=== PATIENT | female | born 1955 | race Two or more races ===

== ENCOUNTER 2019-11-22 21:00 | Inpatient (IN) | payer MEDICARE, OTHER ==
[~2019-11-22] VITALS: Ht 165.1 cm; Wt 59.9 kg
--- NOTE | 2019-11-22 21:20 | NUR ---
PATIENT CAME TO ER BED 3 BIB PARAMEDICS FOR MEDICAL CLEARANCE. PATIENT IS ON A 5150 HOLD SINCE 1600 OF 11-22-2019 FOR DANGER TO SELF. PATIENT DENIES SUICIDAL IDEATION, HOMICIDAL INTENT. PATIENT STATES, "I AM BLEEDING ON THE INSIDE". AAOX2. NO SOB. BREATHING EVENLY AND UNLABORED ON ROOM AIR.
--- NOTE | 2019-11-22 21:26 | NUR ---
URINE COLLECTED AND SENT TO THE LAB.
[2019-11-22 21:38] LABS: BASOPHILS # (AUTO) 0.1 /CMM (0.0-0.2); BASOPHILS % (AUTO) 0.8 % (0.0-2.0); EOSINOPHILS % (AUTO) 1.1 % (0.0-6.0); HEMATOCRIT 46 % (33-45); HEMOGLOBIN 14.8 g/dL (11.5-14.8); LYMPHOCYTES # (AUTO) 2.4 /CMM (0.8-4.8); LYMPHOCYTES % (AUTO) 20.8 % (20.0-44.0); MEAN CORPUSCULAR HGB CONC 32 g/dl (31.0-36.0); MEAN CORPUSCULAR VOLUME 93 fL (82-100); MONOCYTES # (AUTO) 0.9 /CMM (0.1-1.30); MONOCYTES % (AUTO) 8.3 % (2.0-12.0); NEUTROPHILS # (AUTO) 7.9 /CMM (1.8-8.9); PLATELET COUNT (AUTO) 361 /CMM (150-450); RED BLOOD CELL COUNT(AUTO) 4.92 MIL/uL (4.0-5.2); WHITE BLOOD COUNT (AUTO) 11.4 K/uL (4.3-11.0)
[2019-11-22 21:41] LABS: APPEARANCE,URINE Clear (CLEAR); BILIRUBIN,URINE Negative (NEGATIVE); BLOOD, URINE Negative Ery/uL (NEGATIVE); COLOR,URINE Yellow (YELLOW); KETONES,URINE Negative (NEGATIVE); LEUKOCYTE ESTERASE ,URINE Trace (NEGATIVE); NITRITE, URINE Negative (NEGATIVE); PROTEIN,URINE Negative (NEGATIVE); UGLUCOSE Negative (NEGATIVE)
[2019-11-22 21:47] LABS: CALCIUM, SERUM 9.5 mg/dL (8.5-10.1); CARBON DIOXIDE 27 mmol/L (21-32); CHLORIDE 104 mmol/L (98-107); CREATININE 0.8 mg/dL (0.6-1.3); GLUCOSE 86 mg/dL (74-106); POTASSIUM 3.6 mmol/L (3.5-5.1); SODIUM SERUM 140 mmol/L (136-145); UREA NITROGEN, BLOOD 13 mg/dL (7-18)
[2019-11-22 21:50] LABS: RBC,URINE 0-2 /HPF (0-2)
[2019-11-22 21:51] LABS: BACTERIA,URINE Many /HPF (None Seen); SQUAMOUS EPITHELIAL CELL,UR Many /HPF (None Seen)
[2019-11-22 22:04] LABS: ALANINE AMINOTRANSFERASE 18 U/L (12-78); ALBUMIN 3.7 g/dL (3.4-5.0); ALCOHOL, BLOOD < 3 mg/dL (0-0); ALKALINE PHOSPHATASE 105 U/L (46-116); ASPARTATE AMINOTRANSFERASE 11 U/L (15-37); BILIRUBIN,DIRECT 0.1 mg/dL (0.0-0.2); BILIRUBIN,TOTAL 0.3 mg/dL (0.2-1.0); SALICYLATE 4.6 mg/dL (2.8-20.0); TOTAL PROTEIN, SERUM 7.4 g/dL (6.4-8.2)
[2019-11-22 22:05] LABS: ACETAMINOPHEN 0 ug/ml (10-30)
[2019-11-22] MEDS ORDERED: LITH300T PO (22:17)
[2019-11-22] MEDS ORDERED: CEPHALEXIN MONOHYDRATE 500 MG CAPSULE PO ONE ×2 (22:19→22:30)
--- NOTE | 2019-11-22 22:23 | NUR ---
BED ASSIGNMENT BPS 211-A
--- NOTE | 2019-11-22 22:28 | NUR ---
REPORT GIVEN TO KAYLEE LUKE FOR CLAUDIA.
[2019-11-22] MEDS ORDERED: BLOOD SUGAR DIAGNOSTIC 1 EACH STRIP IN ONE (23:00)
[2019-11-22] MEDS ORDERED: TEMAZEPAM 7.5 MG CAPSULE PO PRN (23:00)
[2019-11-22] MEDS ORDERED: MAGNESIUM HYDROXIDE 30 ML UDC PO PRN (23:00)
[2019-11-22] MEDS ORDERED: MAG HYDROX/AL HYDROX/SIMETH 30 ML UDC PO PRN (23:00)
[2019-11-22] MEDS ORDERED: LORAZEPAM 0.5 MG TABLET PO PRN (23:00)
--- NOTE | 2019-11-22 23:00 | NUR ---
GPS SUPERVISOR NURSE NOTES: ADMITTED 64 Y/O MALE. PT ADMITTED FROM [facility] ER TO GPS UNIT ON A 5150. PER HOLD PTS BROTHER CALLED FOR A REQUEST CRISIS EVALUATION DUE TO PT WANDERING AROUND THE STREET WITH NO REGARDS OF HER SAFETY. ON THE HOLD MA STATED THAT HER SON IS . SON IS ACTUALLY ALIVE AND WELL. PT EXHIBITS DELUSION STATED THAT SHE HAS BILLIONS OF DOLLARS IN THE BANK. PT IS PARANOID SAYING THAT HER BROTHERS ARE STEALING HER MONEY. UPON FACE TO FACE PT IS ANXIOUS, CONFUSED, FORGETFUL, PARANOID, NEEDY, COOPERATIVE AT TIMES, DISORGANIZED AND DISHEVELED. PT STATED MULTIPLE TIMES THAT SHE HAS A LOT OF MANY AND THAT HER BROTHER IS NOT SUPPORTIVE. PT CLAIMS SHE IS ALLERGIC TO EGGS, WHEAT, AND RISPERDAL. ALLERGIES INPUTTED ON PTS PROFILE. PT MARLENI SI AND HI AT THIS TIME. PT REFUSED TO SIGN CONSENT PAPER WORK. ENVIRONMENTAL SAFETY CHECK DONE Q15MIN. ENCOURAGE PT TO VERBALIZE CONCERN ANS FEELING TO STAFF. ORIENTED TO THE UNIT. BELONGINGS AND CONTRABAND CHECKED AND DONE. NURSING ASSESSMENT DONE. SKIN ASSESSMENT IS CHECKED WITH LOWER BACK REDNESS, UPPER BACK SCRATCH, AND BILATERAL LONG TOENAILS. PICTURE TAKEN OF PATIENTS FACE FOR IDENTIFICATION PUT IN PTS CHART. PT IS A SMOKER BUT REFUSED NICOTINE PATCH ORDER. EXPLAIN RISKS AND BENEFITS. PT STILL REFUSED X3. PTS RIGHTS DISCUSS BY BUILDING PERFORMANCE CONSULTANT. PROVIDED THE PT WITH HANDBOOK AND MEDICATION GUIDE. VITALS TAKEN WNL. INITIAL BLOOD SUGAR CHECKED. NO S/S OF RESPIRATORY DISTRESS NOTES. BREATHING EVEN AND UNLABORED. NO S/S OF SOB. CALL GARCIA WITHIN REACH. BED LOCKED AND LOWEST POSITION. KEPT CLEAN AND DRY. CONTINUE TO MONITOR.
[2019-11-22] MEDS ORDERED: QUETIAPINE (23:29)
[2019-11-22] MEDS ORDERED: LITH300C2 (23:29)
[2019-11-22] MEDS ORDERED: OLANZAPINE (23:29)
[2019-11-22] MEDS ORDERED: LITH150C (23:29)
[2019-11-22 23:39] VITALS: BP 102/57
[2019-11-23] MEDS ORDERED: OLAN10TA3 PO (07:21)
[2019-11-23] MEDS ORDERED: QUET25TA PO (07:21)
[2019-11-23 08:00] VITALS: BP 118/67
[2019-11-23 08:35] LABS: CREATININE 0.8 mg/dL (0.6-1.3)
[2019-11-23 08:42] LABS: CHOLESTEROL 167 mg/dL (<200); HDL CHOLESTEROL 49 mg/dL (40-60); LDL 97 mg/dL (0-99); TRIGLYCERIDES 156 mg/dL (30-150)
--- NOTE | 2019-11-23 10:09 | NUR ---
Family Contact: SW called the pts brother, Francisco Javier ([phone]), and left a voicemail stating that the SW would like to discuss the pts treatment and discharge plan.
--- NOTE | 2019-11-23 10:10 | NUR ---
Initial Discharge Plan: Pt currently resides at her brother's home located at [address] [place] [address]. Per pt, she is unsure if she wants to return. SW will work with the pt and the MD regarding appropriate discharge planning. SW will form a safe and proper discharge plan.
--- NOTE | 2019-11-23 10:25 | NUR ---
WOUND CARE CONSULT: PT PRESENTS WITH VERY LONG CURLING TOENAILS, PRESENT ON ADMISSION. RECOMMEND DPM CONSULT. DR FERGUSON NOTIFIED OF CONSULT REQUEST. WILL SEE PRN.
--- NOTE | 2019-11-23 11:33 | NUR ---
Family Contact: Pts brother, Francisco Javier ([phone]), called the SW back and SW attempted to go over the pts hospitalization, treatment plan and initial discharge plan. SW attempted to confirm information on the hold which was worded poorly and apologized for the confusion regarding the pts son. In fact, the pts son is alive and well but the pt had thought that he was . SW informed the pts brother that as today she knows that her son is alive and that he is in [facility]. SW attempted to ask the pts brother about the pts living situation and inquired if she can return to living with him. Pts brother appeared to be agitated and stated that he cannot believe she is being discharged already. SW stated that she is not being discharged but that the SW needs to start planning for her discharge in the case that placement will be necessary. Pts brother stated that he did not want to discuss anything anymore and stated that the pts other brother will call and talk to the SW instead.
--- NOTE | 2019-11-23 12:12 | NUR ---
Family Contact: Pts brother, Sam ([phone]), called the SW and stated that he can be the point of contact regarding this pt. He stated that out of all the placement options that the SW informed him about, SNF, sounds the most appropriate for the pt. He requested placement in the [facility].
[2019-11-23 16:00] VITALS: BP 100/64
[2019-11-23 20:30] VITALS: BP 123/79
[2019-11-23] MEDS: OLANZAPINE 5 MG TABLET PO SCH (21:02)
[2019-11-23] MEDS: LITHIUM CARBONATE (300 MG CAP) 300 MG CAPSULE PO SCH (21:03)
--- NOTE | 2019-11-24 00:10 | NUR ---
Patient is alert and oriented. Able to communicate her needs. Complained of soiled pant provided by the hospital. New pant given. Offered a pitcher of water. Complaint with medication and all unit rules at this time. Will continue to monitor behavior and medication effectiveness.
[2019-11-24 08:00] VITALS: BP 113/55
[2019-11-24] MEDS: OLANZAPINE 5 MG TABLET PO SCH ×2 (09:40→20:29)
[2019-11-24] MEDS: LITHIUM CARBONATE (300 MG CAP) 300 MG CAPSULE PO SCH ×3 (09:40→16:34)
[2019-11-24] MEDS: CEPHALEXIN MONOHYDRATE 500 MG CAPSULE PO SCH ×2 (09:40→20:29)
--- NOTE | 2019-11-24 14:45 | NUR ---
INDIVIDUAL COUNSELING: SW attempted to meet with pt however, pt is paranoid and focused on her brother stealing from her. Pt then stated that SW needed to call the brakeshoe repairer and report brother. SW attempted to redirect pts thoughts and pt became agitated. Pt is not appropriate for individual counseling at this time.
[2019-11-24 16:00] VITALS: BP 102/75
--- NOTE | 2019-11-24 16:05 | NUR ---
INDIVIDUAL MEETING: DARINEL met with pt to speak with pt regarding her discharge plan. SW was informed by RN that pt wanted to return to her brother house. SW informed pt that per her brother Sam she is unable to return to her brothers Francisco Javier's house and informed her that Sam has mentioned that a SNF will be a more appropriate place for pt. Pt became agitated and began saying that she refuses to go to a SNF and stated that her brothers are stealing her money and that she will find her own place to go to. SW stated that she needed to discuss returning to her brothers house with her family and pt stated that she was going to call them so they can return her money and give her her belongings. DARINEL will coordinate the best appropriate discharge plan with pt and her brother Sam.
[2019-11-24 20:32] VITALS: BP 116/77
[2019-11-25 08:00] VITALS: BP 100/54
[2019-11-25] MEDS: OLANZAPINE 5 MG TABLET PO SCH ×2 (08:20→19:46)
[2019-11-25] MEDS: LITHIUM CARBONATE (300 MG CAP) 300 MG CAPSULE PO SCH ×3 (08:20→16:31)
[2019-11-25] MEDS: CEPHALEXIN MONOHYDRATE 500 MG CAPSULE PO SCH ×2 (08:20→20:06)
[2019-11-25 15:58] VITALS: BP 107/62
[2019-11-25] MEDS: ACETAMINOPHEN 325 MG TABLET PO PRN (19:46)
[2019-11-25 20:00] VITALS: BP 89/52
[2019-11-25 20:12] VITALS: BP 89/52
[2019-11-25 21:57] VITALS: BP 100/36
[2019-11-26 08:00] VITALS: BP 110/58
[2019-11-26] MEDS: LITHIUM CARBONATE (300 MG CAP) 300 MG CAPSULE PO SCH ×3 (08:19→16:35)
[2019-11-26] MEDS: OLANZAPINE 5 MG TABLET PO SCH ×2 (08:19→20:40)
[2019-11-26] MEDS: CEPHALEXIN MONOHYDRATE 500 MG CAPSULE PO SCH ×2 (08:19→20:40)
[2019-11-26 16:00] VITALS: BP 100/56
[2019-11-26 20:00] VITALS: BP 113/59
[2019-11-27] MEDS: ACETAMINOPHEN 325 MG TABLET PO PRN ×3 (06:44→22:19)
--- NOTE | 2019-11-27 06:45 | NUR ---
GPS RN NOTES: C/O OF BACK PAIN PT C/O OF 3/10 LOWER BACK PAIN. PT REQUESTED TYLENOL. OFFERED TYLENOL PRN PO PER ORDER. PT AGREED AND TOLERATED MEDICATION WELL. CONTINUE TO MONITOR.
[2019-11-27 08:00] VITALS: BP 103/58
[2019-11-27] MEDS: LITHIUM CARBONATE (300 MG CAP) 300 MG CAPSULE PO SCH ×3 (08:18→16:54)
[2019-11-27] MEDS: OLANZAPINE 5 MG TABLET PO SCH ×2 (08:18→20:22)
[2019-11-27] MEDS: CEPHALEXIN MONOHYDRATE 500 MG CAPSULE PO SCH ×2 (08:18→20:22)
--- NOTE | 2019-11-27 09:55 | NUR ---
GPS RN NOTE; PT IN THE ROOM AWAKE, ALERT AND ORIENTED X2.COOPERATIVE,COMPLIANT WITH MEDICATIONS, ANXIOUS, DISORGANIZED. NO S/S OF ANY DISTRESS. RESPIRATION EVEN AND UNLABORED WITH EQUAL RISE AND FALL OF THE CHEST, ON ROOM AIR. PT DENIES SI AT THIS TIME. SAFETY AND FALL PRECAUTION OBSERVED, CALL GARCIA WITHIN REACH. Q15 MINUTES OBSERVATION CONTINUED. WILL CONTINUE TO MONITOR PT FOR MOOD, SAFETY AND BEHAVIOR.
[2019-11-27 10:42] LABS: BASOPHILS # (AUTO) 0.1 /CMM (0.0-0.2); EOSINOPHILS % (AUTO) 3.2 % (0.0-6.0); HEMATOCRIT 42 % (33-45); HEMOGLOBIN 13.8 g/dL (11.5-14.8); LYMPHOCYTES # (AUTO) 2.5 /CMM (0.8-4.8); LYMPHOCYTES % (AUTO) 30.7 % (20.0-44.0); MEAN CORPUSCULAR HGB CONC 33 g/dl (31.0-36.0); MEAN CORPUSCULAR VOLUME 93 fL (82-100); MONOCYTES # (AUTO) 0.8 /CMM (0.1-1.30); MONOCYTES % (AUTO) 10.3 % (2.0-12.0); NEUTROPHILS # (AUTO) 4.4 /CMM (1.8-8.9); NEUTROPHILS % (AUTO) 54.8 % (43.0-81.0); PLATELET COUNT (AUTO) 328 /CMM (150-450); RED BLOOD CELL COUNT(AUTO) 4.54 MIL/uL (4.0-5.2); WHITE BLOOD COUNT (AUTO) 8.1 K/uL (4.3-11.0)
[2019-11-27 11:03] LABS: ALBUMIN 3.1 g/dL (3.4-5.0); BILIRUBIN,TOTAL 0.3 mg/dL (0.2-1.0); CALCIUM, SERUM 9.1 mg/dL (8.5-10.1); CREATININE 0.6 mg/dL (0.6-1.3); POTASSIUM 4.5 mmol/L (3.5-5.1); TOTAL PROTEIN, SERUM 6.4 g/dL (6.4-8.2)
[2019-11-27 16:00] VITALS: BP 102/51
--- NOTE | 2019-11-27 17:25 | NUR ---
gps rn note: PER PATIENT "NOT ALLERGIC TO WHEAT '
[2019-11-27 20:29] VITALS: BP 104/51
--- NOTE | 2019-11-27 22:22 | NUR ---
GPS RN NOTES: C/O OF BACK PAIN PT C/O OF 3/10 LOWER BACK PAIN. PT STATED, " MY LOWER BACK HURTS, BUT I THINK ITS BECAUSE I LAY ON ONES SIDE." PT REQUESTED TYLENOL. PT STATED SHE HAS NO HEADACHE. OFFERED TYLENOL PRN PO PER ORDER. PT AGREED AND TOLERATED MEDICATION WELL. CONTINUE TO MONITOR.
--- NOTE | 2019-11-27 23:35 | NUR ---
GPS RN NOTES: REFUSED WEEKLY SKIN ASSESSMENT/ PICTURE PT REFUSED WEEKLY SKIN ASSESSMENT AND PICTURES. PT ANXIOUS AND STATED, " NO. I DON'T FEEL COMFORTABLE TAKING PICTURES. PICTURES ARE TOO MUCH. " EXPLAIN RISKS AND BENEFITS. PT STILL REFUSED X3. CONTINUE TO MONITOR
[2019-11-28] MEDS: ACETAMINOPHEN 325 MG TABLET PO PRN ×2 (07:11→17:56)
--- NOTE | 2019-11-28 07:34 | NUR ---
GPS RN NOTE: Patient c/o of pain in lower back. Requested Tylenol. Tylenol 650mg PRN PO administered as ordered. Will continue to monitor
[2019-11-28 08:00] VITALS: BP 112/56
[2019-11-28] MEDS: LITHIUM CARBONATE (300 MG CAP) 300 MG CAPSULE PO SCH ×3 (09:01→16:17)
[2019-11-28] MEDS: OLANZAPINE 5 MG TABLET PO SCH ×2 (09:01→20:41)
[2019-11-28] MEDS: CEPHALEXIN MONOHYDRATE 500 MG CAPSULE PO SCH ×2 (09:01→20:41)
[2019-11-28 15:42] VITALS: BP 103/50
[2019-11-28 16:00] VITALS: BP 103/50
[2019-11-28 20:40] VITALS: BP 103/56
[2019-11-28 20:41] VITALS: BP 95/51
[2019-11-29] MEDS: ACETAMINOPHEN 325 MG TABLET PO PRN ×3 (04:36→20:20)
--- NOTE | 2019-11-29 04:39 | NUR ---
GPS RN NOTES: C/O OF BACK PAIN PT C/O OF 3/10 LOWER BACK PAIN. PT STATED, "CAN I HAVE TYLENOL? ITS BEEN WORKING SO FAR. I THINK I SLEPT ON A DIFFERENT POSITION." PT STATED SHE HAS NO HEADACHE. OFFERED TYLENOL PRN PO PER ORDER. PT AGREED AND TOLERATED MEDICATION WELL. CONTINUE TO MONITOR.
[2019-11-29 08:00] VITALS: BP 113/59
[2019-11-29] MEDS: LITHIUM CARBONATE (300 MG CAP) 300 MG CAPSULE PO SCH ×3 (08:33→16:25)
[2019-11-29] MEDS: OLANZAPINE 5 MG TABLET PO SCH ×2 (08:34→20:07)
[2019-11-29] MEDS: CEPHALEXIN MONOHYDRATE 500 MG CAPSULE PO SCH ×2 (08:34→21:49)
--- NOTE | 2019-11-29 09:00 | NUR ---
RN NOTE- PT ALERT ORIENTED TO PERSON PLACE DENIES SI HI AH VH CONCERNED W RETURNING TO PLACE SHE WAS LIVING AT. TOLD SW CAN TALK TO HER AND PT STATED 'IM NOT TALKING TO ANYONE TODAY' NEEDS ATTENDED. MED COMPLIANT, PO INTAKE GOOD.
--- NOTE | 2019-11-29 09:46 | NUR ---
SNF Referral: SW faxed a referral to the following four facilities: [facility] with attn to Admissions to the fax number: [phone] [facility] with attn to Bobby to the fax number: [phone] [facility] with attn Admissions to the fax number: [phone] [facility] with attn to Alejandro to the fax number: [phone]
--- NOTE | 2019-11-29 10:11 | NUR ---
Probable Cause (PC) Hearing Notification: SW called the pts brother, Sam ([phone]), and informed him about the SW sending out the referrals for placement and explained what the hearing entails. SW informed him that she will call him once the hearing is concluded.
--- NOTE | 2019-11-29 11:49 | NUR ---
RN NOTE- PT C/O HEADACHE. TYLENOL 650 MG GIVEN.
--- NOTE | 2019-11-29 13:47 | NUR ---
Family Contact: DARINEL called the pts brother, Sam ([phone]), and informed him that the pt was not released from her hold from the Hearing. DARINEL then expressed to him that the pt will be discharged from the hospital once she is stable and there is placement.
--- NOTE | 2019-11-29 15:33 | NUR ---
Individual Intervention: SW met with the pt to discuss her discharge planning. Pt repeatedly stated that she did not want to be discharged to a nursing facility. SW explained that she has rights but unfortunately because she lives in her brother's home and he does not feel comfortable with her being there, she cannot be discharged there. SW had to repeat that information as the pt was not understanding why she could not go back to the brother's home. Pt stated that she has a lot of family drama that she feels that she needs resolved so that her discharge is not affected. SW stated that she recommends a conversation and then she will follow up regarding discharge planning.
[2019-11-29 16:00] VITALS: BP 99/54
[2019-11-29 20:10] VITALS: BP 113/60
[2019-11-30] MEDS: ACETAMINOPHEN 325 MG TABLET PO PRN ×2 (04:15→21:39)
[2019-11-30 08:00] VITALS: BP 104/58
[2019-11-30] MEDS: LITHIUM CARBONATE (300 MG CAP) 300 MG CAPSULE PO SCH ×3 (09:50→17:58)
[2019-11-30] MEDS: OLANZAPINE 5 MG TABLET PO SCH ×2 (09:50→20:36)
[2019-11-30] MEDS: CEPHALEXIN MONOHYDRATE 500 MG CAPSULE PO SCH (09:50)
--- NOTE | 2019-11-30 13:42 | NUR ---
SNF Contact: SW contacted CJ from [facility] ([phone]) who stated that the pt was denied admission due to wandering behavior and lighting cigarettes in the house. SW stated that was the pts behavior prior to hospital admission and medication changes. CJ asked the SW send additional notes so the SW faxed them to [phone].
--- NOTE | 2019-11-30 13:45 | NUR ---
SNF Contact: SW called [facility] and left a voicemail with the admissions department inquiring about the pts referral.
--- NOTE | 2019-11-30 13:47 | NUR ---
SNF Contact: SW called [facility] and left a voicemail message about the referral that was sent the previous day with the admissions department.
--- NOTE | 2019-11-30 14:15 | NUR ---
SNF Referral: DARINEL faxed a referral to [facility] with attn to Tasneem to the fax number: [phone].
--- NOTE | 2019-11-30 14:16 | NUR ---
Family Contact: SW called the pts brother, Sam ([phone]), and informed him of the conversation that the pt and how the pt could not comprehend that she cannot go back to her brother's house. SW encouraged him to have a conversation with the pt along with the pts other brother that she was living with. SW then informed him that she is following up with the placements where referrals were sent. DARINEL explained that it has been difficult to find placement due to COVID. He stated that he will call the SW back at a more convenient time to get the names of the facilities that the pt has been referred to.
[2019-11-30 16:00] VITALS: BP 107/62
--- NOTE | 2019-11-30 18:00 | NUR ---
RUMINATING ABOUT CONCERN OVER PLACEMENT ON DISCHARGE WITH RN.
[2019-11-30 20:03] VITALS: BP 109/76
[2019-12-01] MEDS: ACETAMINOPHEN 325 MG TABLET PO PRN ×2 (05:02→11:24)
[2019-12-01 08:00] VITALS: BP 102/58
[2019-12-01] MEDS: OLANZAPINE 5 MG TABLET PO SCH ×2 (08:31→20:52)
[2019-12-01] MEDS: LITHIUM CARBONATE (300 MG CAP) 300 MG CAPSULE PO SCH ×3 (08:31→16:29)
--- NOTE | 2019-12-01 13:23 | NUR ---
SNF Contact: Paola ([phone]) from [facility] called the SW and the SW informed her that the pt is going to be discharged the following day and that the pts brother needs a call so that his questions can get answered.
--- NOTE | 2019-12-01 13:24 | NUR ---
Family Contact: SW called the pts brother, Sam ([phone]), and informed him that the pt is being discharged the following day and that there was only one facility that accepted the pt out of the many referrals that were sent. The pts brother appeared to become agitated at the distance of the accepting facility. SW explained that the facilities in the [facility] are not equipped for psychiatric patients even though she is considered to be stable by the MD at this point. Pts brother questioned the SW about Board and Care and SW stated that at this point the pt needs a locked facility and she needs a higher level of care than a Board and Care. Pts brother stated that he needed to think through this decision and that he will call the SW back.
--- NOTE | 2019-12-01 14:37 | NUR ---
Individual Intervention: SW met with the pt at bedside to discuss her discharge planning. Pt stated that she is going to go home to her brother's house with a precinct police sergeant to get her belongings. SW then asked her where she would live and the pt was not able to state a viable plan. SW went over the plan of the pt being discharged to a SNF for a temporary amount of time. Pt stated that she would think about it.
--- NOTE | 2019-12-01 14:52 | NUR ---
Individual Counseling: This SW met with the pt. at [facility] to facilitate counseling regarding positive coping mechanisms. The patient was asleep and did not respond to verbal cues. Pt. will be invited to attend future therapeutic milieu.
[2019-12-01 16:00] VITALS: BP 107/58
--- NOTE | 2019-12-01 16:08 | NUR ---
Family Contact: SW called the pts brother, Sam ([phone]), and he stated that he spoke to [facility] and was wondering if the SW had any placements in [place]. DARINEL stated that she did but informed him it would take a couple of days to send the pt because they will need a COVID test and the pt is set to be discharged tomorrow.
[2019-12-01 20:38] VITALS: BP 99/47
[2019-12-01 20:40] VITALS: BP 99/47
--- NOTE | 2019-12-02 01:45 | NUR ---
Individual Counseling: This SW met with the pt. at [facility] to facilitate 1on1 counseling. However, pt. was sleeping and was not rousable by verbal cues. Pt. will be invited to attend future therapeutic milieu. Addendum: 12/02/19 at 1445 by NALINI TENA Individual Counseling held at 1345*
[2019-12-02] MEDS: ACETAMINOPHEN 325 MG TABLET PO PRN (04:24)
[2019-12-02] MEDS: OLANZAPINE 5 MG TABLET PO SCH (08:01)
[2019-12-02] MEDS: LITHIUM CARBONATE (300 MG CAP) 300 MG CAPSULE PO SCH ×2 (08:01→12:44)
[2019-12-02 08:13] VITALS: BP 90/45
--- NOTE | 2019-12-02 09:00 | NUR ---
RN NOTE- PT IN ROOM, TALKING ABOUT LEAVING AND DC. STATES SHE FEELS 'WEIRD' SOMETIMES FROM RX. VS STABLE. NEEDS ATTENDED, PO INTAKE GOOD, DENIES SI HI AH VH
--- NOTE | 2019-12-02 10:21 | NUR ---
Family Contact: Pts brother, Sam ([phone]), called the SW and stated that the pt can be discharged to [facility] today. He stated that he spoke to his brother and they agreed on the placement. SW stated that she will arrange the discharge.
--- NOTE | 2019-12-02 14:30 | NUR ---
AUTOMOTIVE TECHNICIAN NOTE- PT DC TO [facility]WAY FACILITY [facility] AT THIS TIME VIA AMBULANCE AND GURNEY. REPORT CALLED TO DARIO AT FACILITY. DC INSTRUCTIONS REVIEWED AND SIGNED, AMBULANCE STAFF REVIEWED WELL. VS STABLE, DENIES SI HI AH VH AT PRESENT TIME, VALUABLES RETURNED AND SIGNED FOR. ID [id number] REMOVED FROM PT AND ESCORTED OFF UNIT BY STAFF.
--- NOTE | 2019-12-02 14:32 | NUR ---
Discharge Note: Pt was discharged to [facility] Address: [address], [place] [address] . Pt was transported via [facility] at 2pm. Pts brother, Sam ([phone]) has been notified of the discharge. Upon discharge, the pt appeared to be in a dysphoric mood and presented with an anxious affect. Pt appeared to be alert and oriented x4 (time, place, self and situation). Pt denied both suicidal and homicidal ideation as well as auditory and visual hallucinations. Pt appears to be ambulatory with a steady gait. Pt appears to be groomed and appropriately dressed. Pt will continue to be under the care of psychiatrist, Dr. Machuca, located at [address] [place] [address]; . Pt will also be under the care of utilization review nurse, Dr Doty, located at [address] [place] [address] . Pt signed the Choice of Vendor form.
== END 2019-12-02 14:30 | DRG 885 ==
LOC: ER 21:02 → GPS 22:22
PROVIDERS: ADMIT Psychiatry & Neurology Psychiatry; ATTEND Hospitalist
DX: F31.64 Bipolar disorder, current episode mixed, severe, with psychotic features (principal); N39.0 Urinary tract infection, site not specified; E44.1 Mild protein-calorie malnutrition; F29 Unspecified psychosis not due to a substance or known physiological condition; Z90.49 Acquired absence of other specified parts of digestive tract; F60.0 Paranoid personality disorder; B35.1 Tinea unguium; R26.2 Difficulty in walking, not elsewhere classified; L60.1 Onycholysis; M20.42 Other hammer toe(s) (acquired), left foot; M20.41 Other hammer toe(s) (acquired), right foot; M62.562 Muscle wasting and atrophy, not elsewhere classified, left lower leg; M62.561 Muscle wasting and atrophy, not elsewhere classified, right lower leg; Z73.6 Limitation of activities due to disability; Z72.0 Tobacco use; Z91.14 Patient's other noncompliance with medication regimen
CPT/HCPCS: 36415; 80048-TC; 80053-TC; 80061-TC; 80076-TC; 80305; 81000-TC; 82565-TC; 82962-TC; 85025-TC; 87081-TC; 87086-TC; G0480

== ENCOUNTER 2020-01-26 20:51 | Inpatient (IN) | payer MEDICARE, OTHER ==
[~2020-01-26] VITALS: Ht 165.1 cm; Wt 59.9 kg
--- NOTE | 2020-01-26 21:06 | NUR ---
CHERIE FROM [facility]. TO ER BED 12. AAOX1. NOT IN RESP DISTRESS. BROUGHT IN FOR INCREASED HALLUCINATIONS AND CONFUSION. DURING ASSESSMENT, PT WAS NOTED LOOKING IN OTHER DIRECTION AND SEEMS TO BE TALKING TO SOMEBODY WHILE BEING SPOKEN TO. PT IS NOTED WITH CONFUSION. DENIES ANY THOUGHTS OF HARMING SELF AND OTHERS. PHYLLIS KILPATRICK WAS AT THE BEDSIDE FOR EVAL. ORDERS RECEIVED NOTED AND CARRIED OUT.
--- NOTE | 2020-01-26 21:33 | NUR ---
lab at bedside for blood draw
[2020-01-26 21:36] LABS: BASOPHILS % (AUTO) 0.5 % (0.0-2.0); EOSINOPHILS % (AUTO) 2.9 % (0.0-6.0); HEMATOCRIT 37 % (33-45); LYMPHOCYTES # (AUTO) 2.4 /CMM (0.8-4.8); LYMPHOCYTES % (AUTO) 27.9 % (20.0-44.0); MEAN CORPUSCULAR HGB CONC 33 g/dl (31.0-36.0); MEAN CORPUSCULAR VOLUME 94 fL (82-100); MONOCYTES % (AUTO) 11.3 % (2.0-12.0); NEUTROPHILS % (AUTO) 57.4 % (43.0-81.0); PLATELET COUNT (AUTO) 299 /CMM (150-450); RED BLOOD CELL COUNT(AUTO) 3.88 MIL/uL (4.0-5.2); WHITE BLOOD COUNT (AUTO) 8.6 K/uL (4.3-11.0)
[2020-01-26 21:52] LABS: CALCIUM, SERUM 9.2 mg/dL (8.5-10.1); CARBON DIOXIDE 26 mmol/L (21-32); CHLORIDE 110 mmol/L (98-107); CREATININE 0.8 mg/dL (0.6-1.3); GLUCOSE 103 mg/dL (74-106); POTASSIUM 4.3 mmol/L (3.5-5.1); SODIUM SERUM 140 mmol/L (136-145); UREA NITROGEN, BLOOD 23 mg/dL (7-18)
[2020-01-26 21:56] LABS: ALANINE AMINOTRANSFERASE 15 U/L (12-78); ALBUMIN 3.3 g/dL (3.4-5.0); ALCOHOL, BLOOD < 3 mg/dL (0-0); ALKALINE PHOSPHATASE 87 U/L (46-116); ASPARTATE AMINOTRANSFERASE 11 U/L (15-37); BILIRUBIN,DIRECT 0.1 mg/dL (0.0-0.2); BILIRUBIN,TOTAL 0.2 mg/dL (0.2-1.0); SALICYLATE 3.3 mg/dL (2.8-20.0); TOTAL PROTEIN, SERUM 6.5 g/dL (6.4-8.2)
[2020-01-26 22:06] LABS: APPEARANCE,URINE Clear (CLEAR); BILIRUBIN,URINE Negative (NEGATIVE); BLOOD, URINE Negative Ery/uL (NEGATIVE); COLOR,URINE Yellow (YELLOW); KETONES,URINE Negative (NEGATIVE); LEUKOCYTE ESTERASE ,URINE Trace (NEGATIVE); NITRITE, URINE Negative (NEGATIVE); PROTEIN,URINE Negative (NEGATIVE); UGLUCOSE Negative (NEGATIVE)
[2020-01-26 22:12] LABS: BACTERIA,URINE Few /HPF (None Seen); RBC,URINE 0-2 /HPF (0-2); SQUAMOUS EPITHELIAL CELL,UR Few /HPF (None Seen)
[2020-01-26 22:15] LABS: ACETAMINOPHEN < 2 ug/ml (10-30)
[2020-01-26] MEDS ORDERED: IV NS 0.9% 1,000 ML BAG IV ONE (22:30)
--- NOTE | 2020-01-26 22:41 | NUR ---
ART, QUALITY LEAD AT BEDSIDE FOR EVAL
--- NOTE | 2020-01-26 22:42 | NUR ---
COVID SWAB DONE AND SENT TO LAB
--- NOTE | 2020-01-26 23:42 | NUR ---
report given to ernestina dan for lisa
[2020-01-27 00:30] VITALS: BP 102/55
--- NOTE | 2020-01-27 00:30 | NUR ---
GPS ELECTRICAL TEST ENGINEER NOTES: ADMITTED A 64 YO FEMALE FROM [facility] ON 5150 HOLD FOR GRAVE DISABILITY. PER HOLD, PATIENT WAS YELLING MOTHER AJ, BEING DISRUPTIVE TO OTHER RESIDENTS FROM PREVIOUS SNF, NON COMPLIANT WITH CARE. PATIENT HAS POOR INSIGHT, POOR IMPULSE CONTROL. PATIENT WILL BE UNDER THE CARE OF DR HICKS AND NARCISA KEITH NP FOR [email or web address]. PATIENT THEN ADVISED OF THE HOLD. UPON FACE TO FACE EVALUATION, PATIENT PRESENTS ALERT AND ORIENTED X1, APPEARS UNKEMPT, DISHEVELED, REFUSING TO TALK EXTENSIVELY WHEN ASKED DURING INTERVIEW. SKIN AND BODY ASSESSMENT CHECKED- PATIENT HAS NO ACTIVE OR OPEN WOUNDS NOTED AT THIS TIME. NOTED THE YELLOW COLOR OF HER TOENAILS. PICTURES TAKEN AND PLACED IN THE CHART. PATIENT REFUSED TO SIGN THE ADMISSION PAPERS. BELONGINGS AND CONTRABAND CHECKED. GUIDE TO PRESCRIPTION MEDICATIONS BOOKLET AND PATIENT'S RIGHT'S HANDBOOK PROVIDED. Q15 MIN CHECKS INITIATED. CARE PLAN SPECIFIC FOR PATIENT'S NEEDS STARTED. NEEDLEWORKER DOUBLE CHECKED WITH LAB STAFF REGARDING PATIENT'S COVID TESTING RESULT IT DOES NOT SHOW ANY RESULTS IN THE COMPUTER. ELVIE WILHELM RN SPOKE WITH AMMON FROM LAB AND OBTAINED THE INFORMATION THAT PATIENT TESTED NEGATIVE WITH THE RAPID COVID TESTING HERE AT [facility]. WILL MONITOR PATIENT FOR MOOD, SAFETY AND BEHAVIOR.
--- NOTE | 2020-01-27 00:30 | NUR ---
PT TRANPORTED TO UNIT ON WHEELCHAIR W/ EMT AT BEDSIDE. PT IS IN STABLE CONDITION. NAD NOTED.
[2020-01-27] MEDS ORDERED: MAG HYDROX/AL HYDROX/SIMETH 30 ML UDC PO PRN (01:00)
[2020-01-27] MEDS ORDERED: TEMAZEPAM 7.5 MG CAPSULE PO PRN (01:00)
[2020-01-27] MEDS ORDERED: ACETAMINOPHEN 325 MG TABLET PO PRN (01:00)
[2020-01-27] MEDS ORDERED: LORAZEPAM 1 MG TABLET PO PRN (01:00)
[2020-01-27] MEDS ORDERED: MAGNESIUM HYDROXIDE 30 ML UDC PO PRN (01:00)
[2020-01-27] MEDS ORDERED: LITH300T3 PO (01:11)
[2020-01-27] MEDS ORDERED: OLAN7.5T3 PO (01:12)
[2020-01-27] MEDS ORDERED: BISA10SU61 RC (01:14)
[2020-01-27] MEDS ORDERED: IBUP-1953 PO (01:18)
[2020-01-27] MEDS: CEPHALEXIN MONOHYDRATE 500 MG CAPSULE PO SCH ×3 (01:20→21:02)
[2020-01-27] MEDS ORDERED: BLOOD SUGAR DIAGNOSTIC 1 EACH STRIP IN ONE (01:30)
[2020-01-27 08:00] VITALS: BP 110/69
--- NOTE | 2020-01-27 11:08 | NUR ---
Social Work Initial Discharge: Patient currently resides at [facility] [address], [place] [address]; ([phone]). This chief writer spoke with Froilan Squires ([phone]) who stated that patient is welcomed back upon discharge. This chief writer contacted patient's brother Norbert ([phone]) but was unavailable and left a voicemail. highway worker will work with the patient and the MD regarding appropriate discharge planning. Application Designer will form a safe and proper discharge plan.
--- NOTE | 2020-01-27 11:09 | NUR ---
Social Work Family Contact: This typewriters functional tester contacted patient's brother Norbert ([phone]) and left a voicemail for this typewriters functional tester to contact back.
--- NOTE | 2020-01-27 15:28 | NUR ---
GROUP NOTE: lawn care worker invited pt to participate in group. Pt was unable to have a meaningful conversation with this contract technical writer due to her disorganized thought content. Pt refused to join.
[2020-01-27 16:00] VITALS: BP 115/67
[2020-01-27] MEDS: LITHIUM CARBONATE (300 MG CAP) 300 MG CAPSULE PO SCH (17:27)
[2020-01-27] MEDS: OLANZAPINE 5 MG TABLET PO SCH (17:27)
[2020-01-27 20:00] VITALS: BP 101/52
[2020-01-27] MEDS ORDERED: BISACODYL SUPP (10 MG) 10 MG/SUPP.RECT SUPP.RECT RC PRN (20:30)
[2020-01-27] MEDS ORDERED: IBUPROFEN 600 MG TABLET PO PRN (20:30)
[2020-01-27 21:35] VITALS: BP 110/65
[2020-01-28 05:30] VITALS: BP 112/63
[2020-01-28] MEDS: OLANZAPINE 5 MG TABLET PO SCH ×2 (05:49→16:38)
[2020-01-28 06:41] LABS: BASOPHILS % (AUTO) 0.4 % (0.0-2.0); EOSINOPHILS % (AUTO) 2.4 % (0.0-6.0); HEMATOCRIT 40 % (33-45); HEMOGLOBIN 13.1 g/dL (11.5-14.8); LYMPHOCYTES % (AUTO) 27.9 % (20.0-44.0); MEAN CORPUSCULAR HGB CONC 33 g/dl (31.0-36.0); MEAN CORPUSCULAR VOLUME 94 fL (82-100); MONOCYTES # (AUTO) 0.8 /CMM (0.1-1.30); MONOCYTES % (AUTO) 10.9 % (2.0-12.0); NEUTROPHILS # (AUTO) 4.1 /CMM (1.8-8.9); NEUTROPHILS % (AUTO) 58.4 % (43.0-81.0); PLATELET COUNT (AUTO) 312 /CMM (150-450); RED BLOOD CELL COUNT(AUTO) 4.29 MIL/uL (4.0-5.2); WHITE BLOOD COUNT (AUTO) 7.1 K/uL (4.3-11.0)
[2020-01-28 07:13] LABS: CALCIUM, SERUM 9.3 mg/dL (8.5-10.1); CREATININE 0.7 mg/dL (0.6-1.3); POTASSIUM 4.3 mmol/L (3.5-5.1)
--- NOTE | 2020-01-28 07:16 | NUR ---
RN NOTES : NO CHANGE OF CONDITION NOTED AND PT. RESTING WELL, WILL CONTINUITY WITH CARE.
[2020-01-28] MEDS: CEPHALEXIN MONOHYDRATE 500 MG CAPSULE PO SCH ×2 (07:50→21:20)
[2020-01-28] MEDS: LITHIUM CARBONATE (300 MG CAP) 300 MG CAPSULE PO SCH ×3 (07:51→16:38)
[2020-01-28 08:00] VITALS: BP 104/64
[2020-01-28 16:00] VITALS: BP 125/71
[2020-01-28 20:42] VITALS: BP 98/50
[2020-01-28 21:33] VITALS: BP 115/65
[2020-01-29] MEDS: OLANZAPINE 5 MG TABLET PO SCH ×2 (05:14→20:08)
[2020-01-29] MEDS: CEPHALEXIN MONOHYDRATE 500 MG CAPSULE PO SCH ×2 (07:49→20:09)
[2020-01-29] MEDS: LITHIUM CARBONATE (300 MG CAP) 300 MG CAPSULE PO SCH ×3 (07:49→16:40)
[2020-01-29 08:00] VITALS: BP 111/72
[2020-01-29 16:00] VITALS: BP 110/70
[2020-01-29 20:23] VITALS: BP 113/63
[2020-01-30 08:00] VITALS: BP 109/69
[2020-01-30] MEDS: CEPHALEXIN MONOHYDRATE 500 MG CAPSULE PO SCH ×2 (08:08→21:01)
[2020-01-30] MEDS: OLANZAPINE 5 MG TABLET PO SCH ×3 (08:08→19:54)
[2020-01-30] MEDS: LITHIUM CARBONATE (300 MG CAP) 300 MG CAPSULE PO SCH ×3 (08:08→17:15)
--- NOTE | 2020-01-30 09:00 | NUR ---
RN NOTE- PT QUIET CONFUSED MED COMPLIANT GUARDED AND WARY... DOES RESPOND TO QUERY SLOW VERBAL INTERACTION MED COMPLIANT DENIES ALL PO INTAKE GOOD
--- NOTE | 2020-01-30 12:21 | NUR ---
Social Work Family Contact: This tag writer contacted patient's brother Norbert ([phone]) and left a voicemail for this tag writer to contact back.
[2020-01-30 16:00] VITALS: BP 105/72
[2020-01-30 20:25] VITALS: BP 101/49
[2020-01-30] MEDS ORDERED: OLANZAPINE 10 MG TABLET PO SCH (22:00)
[2020-01-31 08:00] VITALS: BP 113/64
[2020-01-31] MEDS: OLANZAPINE 5 MG TABLET PO SCH (08:21)
[2020-01-31] MEDS: LITHIUM CARBONATE (300 MG CAP) 300 MG CAPSULE PO SCH ×3 (08:21→16:31)
[2020-01-31] MEDS: CEPHALEXIN MONOHYDRATE 500 MG CAPSULE PO SCH ×2 (08:21→21:16)
--- NOTE | 2020-01-31 09:00 | NUR ---
RN NOTE- MED COMPLIANT GUARDED AND WARY... DOES RESPOND TO QUERY SLOW VERBAL INTERACTION DENIES ALL PO INTAKE GOOD
--- NOTE | 2020-01-31 11:51 | NUR ---
Social Work Family Contact: This typewriter operator automatic spoke patient's brother Norbert ([phone]) regarding treatment and discharge plan. Norbert was concerned about the patient being able to return to [facility], however this typewriter operator automatic assured that the patient will be returning to her SNF upon discharge.
--- NOTE | 2020-01-31 15:35 | NUR ---
GROUP NOTE: Group Topic: Depression SW invited patient to attend group. Patient refused to join group despite efforts to engage with patient.
[2020-01-31 16:00] VITALS: BP 122/60
[2020-01-31 20:01] VITALS: BP 98/53
[2020-01-31] MEDS: OLANZAPINE 10 MG TABLET PO SCH (21:16)
[2020-02-01 08:00] VITALS: BP 114/62
[2020-02-01] MEDS: LITHIUM CARBONATE (300 MG CAP) 300 MG CAPSULE PO SCH ×3 (08:04→16:33)
[2020-02-01] MEDS: OLANZAPINE 5 MG TABLET PO SCH (08:04)
[2020-02-01] MEDS: CEPHALEXIN MONOHYDRATE 500 MG CAPSULE PO SCH ×2 (08:04→20:34)
--- NOTE | 2020-02-01 09:00 | NUR ---
RN NOTE- PT QUIET WITHDRAWN PARANOID AND WARY DENIES SI HI AH VH AT PRESENT THOUGH SEEMS PREOCCUPIED MED COMPLIANT
--- NOTE | 2020-02-01 15:52 | NUR ---
Group Note: SW encouraged the pt to attend group therapy on 02/01/20 on the topic of discharge planning. Pt stated that she did not want to participate in group and wanted to continue walking around the unit. Pt also stated that she did not want to speak to anyone who was not on her case.
[2020-02-01 16:00] VITALS: BP 110/68
[2020-02-01 19:55] VITALS: BP 116/47
[2020-02-01 19:59] VITALS: BP 116/47
[2020-02-01 20:33] VITALS: BP 119/58
[2020-02-01] MEDS: OLANZAPINE 10 MG TABLET PO SCH (21:09)
--- NOTE | 2020-02-01 21:30 | NUR ---
GPS RN NOTE PATIENT SEEN BY DR. HICKS WITH NO NEW ORDERS AT THIS TIME.
[2020-02-02 08:32] VITALS: BP 98/51
[2020-02-02] MEDS: OLANZAPINE 5 MG TABLET PO SCH (08:45)
[2020-02-02] MEDS: SERTRALINE HCL 50 MG TABLET PO SCH (08:45)
[2020-02-02] MEDS: LITHIUM CARBONATE (300 MG CAP) 300 MG CAPSULE PO SCH ×3 (08:45→16:26)
[2020-02-02] MEDS: CEPHALEXIN MONOHYDRATE 500 MG CAPSULE PO SCH ×2 (09:23→21:49)
--- NOTE | 2020-02-02 14:27 | NUR ---
GROUP NOTE: Topic: Adapting to our environment. chemical tank worker encouraged patient to participate in group therapy. Patient presented withdrawn and did not want to engage with this senior copywriter or peers at this time. Patient wanted to continue to lay in bed.
[2020-02-02 16:00] VITALS: BP 114/61
[2020-02-02 20:26] VITALS: BP 97/64
[2020-02-02] MEDS: OLANZAPINE 10 MG TABLET PO SCH (21:49)
[2020-02-03 08:00] VITALS: BP 104/60
[2020-02-03] MEDS: LITHIUM CARBONATE (300 MG CAP) 300 MG CAPSULE PO SCH ×3 (08:07→16:09)
[2020-02-03] MEDS: CEPHALEXIN MONOHYDRATE 500 MG CAPSULE PO SCH ×2 (08:08→20:03)
[2020-02-03] MEDS: OLANZAPINE 5 MG TABLET PO SCH (08:08)
[2020-02-03] MEDS: SERTRALINE HCL 50 MG TABLET PO SCH (08:08)
--- NOTE | 2020-02-03 15:26 | NUR ---
GROUP NOTE: Topic: Learning coping skills. Patient shared about her wanting to go home. Pt stated she is feeling "okay. and tired". SW provided empathetic understanding. Patient did not want to engage in conversation any longer.
[2020-02-03 16:00] VITALS: BP 100/58
[2020-02-03 19:38] VITALS: BP 101/49
[2020-02-03 21:16] VITALS: BP 101/49
[2020-02-03 21:27] VITALS: BP 103/64
[2020-02-03] MEDS: OLANZAPINE 10 MG TABLET PO SCH (21:29)
--- NOTE | 2020-02-03 22:30 | NUR ---
GPS RN NOTE PATIENT HAD SNACK & PO FLUIDS, TOLERATED WELL. NO CHANGES NOTED. DUE MEDS GIVEN & TOLERATED WELL. WILL CONTINUE TO MONITOR FOR ANY CHANGES.
[2020-02-04 08:00] VITALS: BP 118/57
[2020-02-04] MEDS: LITHIUM CARBONATE (300 MG CAP) 300 MG CAPSULE PO SCH ×3 (08:07→16:49)
[2020-02-04] MEDS: SERTRALINE HCL 50 MG TABLET PO SCH (08:07)
[2020-02-04] MEDS: CEPHALEXIN MONOHYDRATE 500 MG CAPSULE PO SCH ×2 (08:07→21:19)
[2020-02-04 16:00] VITALS: BP 104/50
[2020-02-04 21:06] VITALS: BP 91/41
[2020-02-04] MEDS: OLANZAPINE 10 MG TABLET PO SCH (21:51)
--- NOTE | 2020-02-04 21:51 | NUR ---
GPS RN NOTE: HELD SCHEDULED 2200 ZYPREXA 10 MG PO DUE TO DECREASED BLOOD PRESSURE 98/48. WILL CONTINUE TO MONITOR FOR SAFETY AND BEHAVIOR
[2020-02-05 08:00] VITALS: BP 103/70
[2020-02-05] MEDS: SERTRALINE HCL 50 MG TABLET PO SCH (08:11)
[2020-02-05] MEDS: LITHIUM CARBONATE (300 MG CAP) 300 MG CAPSULE PO SCH ×3 (08:11→17:25)
[2020-02-05] MEDS: CEPHALEXIN MONOHYDRATE 500 MG CAPSULE PO SCH ×2 (08:11→21:11)
[2020-02-05 15:56] VITALS: BP 103/72
[2020-02-05 20:02] VITALS: BP 108/61
[2020-02-05] MEDS: OLANZAPINE 10 MG TABLET PO SCH (21:11)
[2020-02-06 08:00] VITALS: BP 106/64
[2020-02-06] MEDS: CEPHALEXIN MONOHYDRATE 500 MG CAPSULE PO SCH ×2 (08:39→21:04)
[2020-02-06] MEDS: LITHIUM CARBONATE (300 MG CAP) 300 MG CAPSULE PO SCH ×3 (08:39→16:34)
[2020-02-06] MEDS: SERTRALINE HCL 50 MG TABLET PO SCH (08:39)
--- NOTE | 2020-02-06 09:51 | NUR ---
DARINEL Discharge Planning: DARINEL spoke with Paola medical services coordinator at [facility] ([phone]) and informed of the patient's discharge plan for tomorrow back to their facility. DARINEL faxed Paola the patient's progress notes, medications list, and negative COVID test results. DARINEL also called and left a voicemail for patient's brother, Norbert ([phone]) to informed of the patient's discharge plan for tomorrow as well.
--- NOTE | 2020-02-06 15:38 | NUR ---
Group Note: SW invited patient to participate in group therapy to discuss the topic of Problem Solving. Patient was asleep at this time and unable to participate in group.
[2020-02-06 16:00] VITALS: BP 108/69
[2020-02-06 20:02] VITALS: BP 101/45
[2020-02-06] MEDS: OLANZAPINE 10 MG TABLET PO SCH (22:00)
[2020-02-07 08:00] VITALS: BP 113/62
[2020-02-07] MEDS: LITHIUM CARBONATE (300 MG CAP) 300 MG CAPSULE PO SCH ×2 (08:27→12:33)
[2020-02-07] MEDS: CEPHALEXIN MONOHYDRATE 500 MG CAPSULE PO SCH (08:27)
[2020-02-07] MEDS: SERTRALINE HCL 50 MG TABLET PO SCH (08:27)
--- NOTE | 2020-02-07 08:51 | NUR ---
Discharge Note: Patient will be discharged today to [facility] [address] [place] [address] ([phone]). Patient will be provided ambulance transportation at 12PM. Spoke with Paola production coordinator ([phone]) at the facility who states they are ready to accept the patient today. Patient is alert and oriented x2-3 and is not able to plan for self-care at this time but is willing to accept care provided for her at the facility. Patient denies any suicidal or homicidal ideation. Patient is aware and agreeable with discharge plans. Patient will continue to follow-up with her Psychiatrist Dr. Machuca and Parking Lot Attendant And Cashier Dr. Doty at [facility] [address] [place] [address] ([phone]). Patient presents with euthymic mood and congruent affect. Patients brotherNorbert ([phone]) is made aware and is agreeable with discharge plan.
--- NOTE | 2020-02-07 09:00 | NUR ---
RN NOTE- PT IN BED AWAKE ORIENTED TO PERSON PLACE TIME. ANTICIPATING DC, NEEDS ATTENDED [facility] CONTACT INITIATES CONVERSATION DENIES SI HI AH VH AT PRESENT VS STABLE MED COMPLIANT
--- NOTE | 2020-02-07 12:10 | NUR ---
RN DC NOTE- PT DC THIS TIME VIA AMBULANCE SERVICE TO [facility]. DC INSTRUCTIONS AND AFTERCARE REPORT CALLED TO FACILITY. VERBALIZED UNDERSTANDING RETURNED. MED ORDERS GIVEN. PT VS STABLE, DENIES SI HI AH VH AT PRESENT VALUABLES RETURNED TO PT ID [email or web address] REMOVED . ASSISTED OFF UNIT BY STAFF ON [facility]. NO PHOTOS NEEDED SKIN INTACT.
== END 2020-02-07 12:10 | DRG 885 ==
LOC: ER 20:57 → GPS 23:19
PROVIDERS: ADMIT Psychiatry & Neurology Psychiatry; ATTEND Nurse Practitioner Acute Care
DX: F31.5 Bipolar disorder, current episode depressed, severe, with psychotic features (principal); N17.9 Acute kidney failure, unspecified; G93.41 Metabolic encephalopathy; E44.1 Mild protein-calorie malnutrition; N39.0 Urinary tract infection, site not specified; F29 Unspecified psychosis not due to a substance or known physiological condition; F17.200 Nicotine dependence, unspecified, uncomplicated; Z90.49 Acquired absence of other specified parts of digestive tract; Z91.19 Patient's noncompliance with other medical treatment and regimen; Z88.9 Allergy status to unspecified drugs, medicaments and biological substances; Z73.6 Limitation of activities due to disability; Z86.59 Personal history of other mental and behavioral disorders; B96.89 Other specified bacterial agents as the cause of diseases classified elsewhere; Z59.0 Homelessness; G31.84 Mild cognitive impairment of uncertain or unknown etiology
CPT/HCPCS: 36415; 80048-TC; 80061-TC; 80076-TC; 80305; 81000-TC; 82962-TC; 85025-TC; 87081-TC; 87086-TC; 92611-TC; 97116-TC; 97530-TC; A6253; G0480; J7030

== ENCOUNTER 2024-10-12 07:17 | Emergency (ER) | payer MEDICARE, OTHER ==
[~2024-10-12] VITALS: Ht 157.5 cm; Wt 61.2 kg
[~2024-10-12 07:17] MED LIST: BISA10SU61 RC; IBUP-1953 PO
[2024-10-12 07:23] VITALS: TEMP 98.5
[2024-10-12] MEDS ORDERED: LIDOCAINE 1%-EPI 1:100,000 20 ML VIAL ONE (07:33)
[2024-10-12] MEDS: LIDOCAINE 1% INJ 50 ML MDV IJ ONE (07:42)
[2024-10-12] MEDS ORDERED: TDAP [DIPH/PERTUSSIS/TET] 0.5 ML VIAL IM ONE (07:49)
[2024-10-12] MEDS: TDAP [DIPH/PERTUSSIS/TET] 0.5 ML VIAL IM ONE (07:54)
[2024-10-12] MEDS: BACI/NEOM/POLY B OINT PKT 1 UDPKT PACKET TP ONE (07:55)
[2024-10-12 11:12] VITALS: BP 109/76; O2SAT 94
== END 2024-10-12 10:45 ==
LOC: ER 07:20
DX: S01.01XA Laceration without foreign body of scalp, initial encounter (principal); F03.90 Unspecified dementia, unspecified severity, without behavioral disturbance, psychotic disturbance, mood disturbance, and anxiety; F17.200 Nicotine dependence, unspecified, uncomplicated; Z88.8 Allergy status to other drugs, medicaments and biological substances; Z90.49 Acquired absence of other specified parts of digestive tract; W01.0XXA Fall on same level from slipping, tripping and stumbling without subsequent striking against object, initial encounter; Y93.89 Activity, other specified; Y92.89 Other specified places as the place of occurrence of the external cause; Y99.8 Other external cause status
CPT/HCPCS: 12002; 70450; 72125; 90471; 90715; 99285; J3490